=== PATIENT | female | born 1960 | race African-American/Black ===

== ENCOUNTER 2017-11-30 18:48 | Emergency (ER) | payer OTHER ==
[~2017-11-30] VITALS: Ht 167.6 cm; Wt 80.0 kg
[2017-11-30 18:55] VITALS: BP 150/80
== END 2017-11-30 21:40 | disposition left against medical advice (07) ==
LOC: ER 19:01
DX: F41.9 Anxiety disorder, unspecified (principal); Z53.21 Procedure and treatment not carried out due to patient leaving prior to being seen by health care provider